=== PATIENT | male | born 1980 | race African-American/Black ===

== ENCOUNTER 2021-12-04 21:25 | Emergency (ER) | payer MEDICAID ==
[~2021-12-04] VITALS: Ht 175.3 cm; Wt 74.0 kg
[2021-12-04 23:12] VITALS: BP 105/72
== END 2021-12-04 23:15 | disposition home or self-care (01) ==
LOC: ER 21:25
DX: F41.9 Anxiety disorder, unspecified (principal); R03.0 Elevated blood-pressure reading, without diagnosis of hypertension; R94.31 Abnormal electrocardiogram [ECG] [EKG]
CPT/HCPCS: 93005; 99283

== ENCOUNTER 2023-02-11 13:15 | Emergency (ER) | payer MEDICAID, OTHER ==
[~2023-02-11] VITALS: Ht 175.3 cm; Wt 73.0 kg
[2023-02-11 14:59] VITALS: BP 115/75
[2023-02-11 16:15] LABS: CLARITY URINE CLEAR (CLEAR); COLOR URINE YELLOW (YELLOW); KETONES URINE NEGATIVE (NEGATIVE); LEUKOCYTE ESTERASE URINE NEGATIVE (NEGATIVE); NITRITE URINE NEGATIVE (NEGATIVE); OCCULT BLOOD URINE NEGATIVE (NEGATIVE); PROTEIN URINE NEGATIVE (NEGATIVE); SPECIFIC GRAVITY URINE 1.004 (1.005-1.030); UROBILINOGEN URINE 0.2 E.U./dL (0.2-1.0)
[2023-02-11] MEDS ORDERED: ACETAMINOPHEN 325MG TABLET PO ONE (16:15)
[2023-02-11] MEDS ORDERED: CEFTRIAXONE SODIUM 500 MG/VIAL IM ONE (16:45)
[2023-02-11] MEDS ORDERED: DOXYCYCLINE HYCLATE 100MG CAPSULE PO ONE (16:45)
[2023-02-11] MEDS ORDERED: DOXY-456 MT (16:48)
[2023-02-14 04:10] LABS: NEISSERIA GONORRHOEAE NAA Negative (Negative)
== END 2023-02-11 17:39 | disposition home or self-care (01) ==
LOC: ER 13:15
DX: N45.2 Orchitis (principal); F41.9 Anxiety disorder, unspecified; F12.10 Cannabis abuse, uncomplicated
CPT/HCPCS: 76870; 81003; 87491; 87591; 93976; 96372; 99285; J0696

== ENCOUNTER 2023-09-04 08:52 | Emergency (ER) | payer OTHER ==
[~2023-09-04] VITALS: Ht 172.7 cm; Wt 73.0 kg
[~2023-09-04 08:52] MED LIST: DOXY-456 MT
[2023-09-04 09:06] VITALS: O2SAT 99
[2023-09-04] MEDS ORDERED: ONDANSETRON 4MG ODT PO ONE (09:30)
[2023-09-04] MEDS ORDERED: BISMUTH SUBSALICYLATE 262 MG/15 ML-120ML BOTTLE PO ONE (09:30)
[2023-09-04 09:41] LABS: BASOPHILS % 0.5 % (0.0-2.0); EOSINOPHILS % 0.3 % (0.0-5.0); HEMATOCRIT. 47.4 % (42.0-52.0); HEMOGLOBIN. 15.9 g/dL (14.0-18.0); LYMPHOCYTES % 22.2 % (20.0-50.0); MEAN CORPUSCULAR HGB CONC 33.5 g/dL (31.0-37.0); MEAN CORPUSCULAR VOLUME 95.6 fL (80.0-94.0); MONOCYTES % 10.7 % (2.0-8.0); NEUTROPHILS % 66.3 % (40.0-76.0); RED BLOOD CELL COUNT 4.96 mill/uL (4.7-6.1); RED CELL DISTRIBUTION WIDTH 12.4 % (11.6-14.6); WHITE BLOOD COUNT 5.6 x1000/uL (4.5-11.0)
[2023-09-04 09:49] LABS: DIFFERENTIAL COMMENT 1
[2023-09-04 09:52] LABS: ALANINE AMINOTRANSFERASE 34 IU/L (10-49); ALBUMIN 4.8 g/dL (3.2-4.8); ASPARTATE AMINOTRANSFERASE 37 IU/L (<34); CALCIUM 9.7 mg/dL (8.7-10.4); CARBON DIOXIDE 27 mEq/L (21-32); CHLORIDE 101 mEq/L (98-107); CREATININE 1.2 mg/dL (0.6-1.3); GLUCOSE 97 mg/dL (70-105); POTASSIUM 3.5 mEq/L (3.5-5.1); PROTEIN TOTAL 7.3 g/dL (6.0-8.3); SODIUM 137 mEq/L (136-145); TROPONIN I HIGH SENSITIVITY 5 ng/L (3.0-53); UREA NITROGEN BLOOD 12 mg/dL (9-23)
[2023-09-04 10:26] LABS: CLARITY URINE CLOUDY (CLEAR); COLOR URINE DARK YELLOW (YELLOW); GLUCOSE URINE NEGATIVE (NEGATIVE); KETONES URINE TRACE (NEGATIVE); LEUKOCYTE ESTERASE URINE NEGATIVE (NEGATIVE); NITRITE URINE NEGATIVE (NEGATIVE); OCCULT BLOOD URINE NEGATIVE (NEGATIVE); PROTEIN URINE 1+ (NEGATIVE); SPECIFIC GRAVITY URINE 1.036 (1.005-1.030)
[2023-09-04 10:28] LABS: PLATELET 205 x1000/uL (130-400)
[2023-09-04 10:30] LABS: BACTERIA URINE NONE SEEN; SQUAMOUS EPITHELIAL CELL URINE NONE SEEN /lpf (RARE/1+); WBC URINE NONE SEEN /hpf (0-2); YEAST URINE NONE SEEN
[2023-09-04 11:00] VITALS: BP 118/80; PULSE 70; RESP 18; TEMP 98.7
[2023-09-04 11:13] LABS: MUCUS URINE 3+ /lpf (NONE/TRACE)
[2023-09-04 11:14] LABS: RBC URINE NONE SEEN /hpf (0-2)
== END 2023-09-04 11:25 | disposition home or self-care (01) ==
LOC: ER 08:52
DX: R19.7 Diarrhea, unspecified (principal); F12.10 Cannabis abuse, uncomplicated
CPT/HCPCS: 36415; 80053; 81003; 84484; 85025; 93005; 99284; Q0162

== ENCOUNTER 2023-11-08 22:07 | Emergency (ER) | payer OTHER ==
[~2023-11-08] VITALS: Ht 175.3 cm; Wt 68.4 kg
[2023-11-08 23:43] VITALS: BP 117/79; PULSE 74; RESP 15; TEMP 98.6
[2023-11-09] MEDS ORDERED: PENICILLIN V POTASSIUM 250MG TABLET PO SCH
[2023-11-09] MEDS ORDERED: HYDROCODONE/ACETAMINOPHEN 5/325MG TABLET PO ONE
[2023-11-09] MEDS ORDERED: PENI500T MT (00:01)
[2023-11-09] MEDS ORDERED: IBUP-2029 MT (00:01)
== END 2023-11-09 00:41 | disposition home or self-care (01) ==
LOC: ER 22:07
DX: K04.7 Periapical abscess without sinus (principal); F12.10 Cannabis abuse, uncomplicated
CPT/HCPCS: 99283

== ENCOUNTER 2024-01-21 12:50 | Emergency (ER) | payer OTHER ==
[~2024-01-21] VITALS: Ht 175.3 cm; Wt 74.0 kg
[~2024-01-21 12:50] MED LIST changes: +IBUP-2029 MT; +PENI500T MT
[2024-01-21 13:03] VITALS: O2SAT 100
[2024-01-21 14:11] VITALS: TEMP 98.8
[2024-01-21] MEDS: ACETAMINOPHEN 325MG TABLET PO ONE (14:11)
[2024-01-21] MEDS: IBUPROFEN 400MG TABLET PO ONE (14:11)
[2024-01-21] MEDS ORDERED: CLOT15CR27 TP (15:26)
[2024-01-21 15:35] VITALS: BP 109/74; PULSE 74; RESP 10
== END 2024-01-21 15:36 | disposition home or self-care (01) ==
LOC: ER 12:50
DX: M79.674 Pain in right toe(s) (principal); F12.10 Cannabis abuse, uncomplicated
CPT/HCPCS: 73660; 99283